=== PATIENT | female | born 1960 | race Caucasian/White ===

== ENCOUNTER 2023-01-23 12:02 | Outpatient (REF) | payer MEDICARE, SELFPAY ==
[2023-01-23 13:27] LABS: Basophils Absolute Auto 0.1 10^3/uL (0.0-0.1); Basophils Percent Auto 0.6 % (0.2-2.0); Eosinophils Percent Auto 11.5 % (0.9-7.0); Hematocrit 36.8 % (36.0-48.0); Hemoglobin 11.1 g/dL (12.0-16.0); Immature Granulocytes Abs Auto 0.03 10^3/uL (0.00-0.03); Immature Granulocytes Pct Auto 0.4 % (0.0-0.5); Lymphocytes Absolute Auto 1.5 10^3/uL (1.2-3.8); Lymphocytes Percent Auto 18.4 % (20.5-60.0); Mean Corpuscular HGB Conc 30.2 g/dL (29.9-35.2); Mean Corpuscular Hemoglobin 27.7 pg (26.7-34.0); Mean Corpuscular Volume 91.8 fL (81.0-99.0); Mean Platelet Volume 10.2 fL (9.5-13.5); Monocytes Absolute Auto 0.8 10^3/uL (0.3-0.8); Monocytes Percent Auto 9.4 % (1.7-12.0); Neutrophils Percent Auto 59.7 % (43.0-75.0); Platelet Count 370 10^3/uL (150-450); Red Blood Count 4.01 10^6/uL (4.20-5.40); Red Cell Distribution Width 17.1 % (11.0-15.0); White Blood Count 8.3 10^3/uL (4.0-11.0)
== END 2023-01-23 12:03 ==
LOC: LAB 12:02
PROVIDERS: PCP Internal Medicine; Visit Provider Internal Medicine
DX: D64.9 Anemia, unspecified (principal)
CPT/HCPCS: 36415; 85025

== ENCOUNTER 2023-02-10 05:14 | Outpatient (REF) | payer MEDICARE, SELFPAY ==
[2023-02-10 10:16] LABS: Basophils Percent Auto 0.5 % (0.2-2.0); Eosinophils Absolute Auto 0.5 10^3/uL (0.0-0.7); Hematocrit 36.1 % (36.0-48.0); Hemoglobin 11.1 g/dL (12.0-16.0); Immature Granulocytes Abs Auto 0.01 10^3/uL (0.00-0.03); Immature Granulocytes Pct Auto 0.2 % (0.0-0.5); Lymphocytes Absolute Auto 1.7 10^3/uL (1.2-3.8); Lymphocytes Percent Auto 26.4 % (20.5-60.0); Mean Corpuscular HGB Conc 30.7 g/dL (29.9-35.2); Mean Corpuscular Hemoglobin 27.7 pg (26.7-34.0); Mean Platelet Volume 10.9 fL (9.5-13.5); Monocytes Absolute Auto 0.6 10^3/uL (0.3-0.8); Monocytes Percent Auto 9.4 % (1.7-12.0); Neutrophils Absolute Auto 3.5 10^3/uL (1.4-6.5); Neutrophils Percent Auto 55.5 % (43.0-75.0); Platelet Count 248 10^3/uL (150-450); Red Blood Count 4.01 10^6/uL (4.20-5.40); Red Cell Distribution Width 16.8 % (11.0-15.0); White Blood Count 6.4 10^3/uL (4.0-11.0)
== END 2023-02-10 05:15 | disposition home or self-care (01) ==
LOC: LAB 05:14
PROVIDERS: PCP Internal Medicine; Visit Provider Internal Medicine
DX: D64.9 Anemia, unspecified (principal)
CPT/HCPCS: 36415; 85025

== ENCOUNTER 2023-05-01 01:24 | Outpatient (REF) | payer MEDICARE, SELFPAY ==
[2023-05-01 06:31] LABS: Basophils Percent Auto 0.7 % (0.2-2.0); Eosinophils Absolute Auto 0.5 10^3/uL (0.0-0.7); Eosinophils Percent Auto 8.6 % (0.9-7.0); Hematocrit 34.4 % (36.0-48.0); Hemoglobin 10.7 g/dL (12.0-16.0); Immature Granulocytes Abs Auto 0.01 10^3/uL (0.00-0.03); Immature Granulocytes Pct Auto 0.2 % (0.0-0.5); Lymphocytes Absolute Auto 1.7 10^3/uL (1.2-3.8); Lymphocytes Percent Auto 28.5 % (20.5-60.0); Mean Corpuscular HGB Conc 31.1 g/dL (29.9-35.2); Mean Corpuscular Hemoglobin 28.3 pg (26.7-34.0); Mean Platelet Volume 10.4 fL (9.5-13.5); Monocytes Absolute Auto 0.7 10^3/uL (0.3-0.8); Monocytes Percent Auto 12.1 % (1.7-12.0); Neutrophils Percent Auto 49.9 % (43.0-75.0); Platelet Count 314 10^3/uL (150-450); Red Blood Count 3.78 10^6/uL (4.20-5.40); Red Cell Distribution Width 14.9 % (11.0-15.0)
== END 2023-05-01 01:25 | disposition home or self-care (01) ==
LOC: LAB 01:24
PROVIDERS: PCP Internal Medicine; Visit Provider Internal Medicine
DX: D64.9 Anemia, unspecified (principal)
CPT/HCPCS: 36415; 85025

== ENCOUNTER 2023-06-07 04:51 | Outpatient (REF) | payer MEDICARE, MEDICAID, SELFPAY ==
[2023-06-07 10:08] LABS: Basophils Absolute Auto 0.1 10^3/uL (0.0-0.1); Basophils Percent Auto 0.6 % (0.2-2.0); Eosinophils Absolute Auto 0.4 10^3/uL (0.0-0.7); Eosinophils Percent Auto 4.5 % (0.9-7.0); Hematocrit 33.1 % (36.0-48.0); Hemoglobin 10.6 g/dL (12.0-16.0); Immature Granulocytes Abs Auto 0.02 10^3/uL (0.00-0.03); Immature Granulocytes Pct Auto 0.2 % (0.0-0.5); Lymphocytes Absolute Auto 1.7 10^3/uL (1.2-3.8); Lymphocytes Percent Auto 19.1 % (20.5-60.0); Mean Corpuscular Hemoglobin 29.3 pg (26.7-34.0); Mean Corpuscular Volume 91.4 fL (81.0-99.0); Mean Platelet Volume 10.8 fL (9.5-13.5); Monocytes Absolute Auto 0.8 10^3/uL (0.3-0.8); Monocytes Percent Auto 8.5 % (1.7-12.0); Neutrophils Absolute Auto 5.9 10^3/uL (1.4-6.5); Neutrophils Percent Auto 67.1 % (43.0-75.0); Platelet Count 279 10^3/uL (150-450); Red Blood Count 3.62 10^6/uL (4.20-5.40); Red Cell Distribution Width 13.8 % (11.0-15.0); White Blood Count 8.8 10^3/uL (4.0-11.0)
[2023-06-07 10:57] LABS: Alanine Aminotransferase 21 U/L (14-59); Albumin Globulin Ratio 0.8; Albumin Level 2.9 g/dL (3.4-5.0); Alkaline Phosphatase 93 U/L (46-116); Anion Gap 8.7; Aspartate Amino Transferase 18 U/L (15-37); BUN Creatinine Ratio 29.1; Bilirubin Total 0.2 mg/dL (0.2-1.0); Calcium 8.6 mg/dL (8.5-10.1); Carbon Dioxide 29.4 mmol/L (21.0-32.0); Chloride 104 mmol/L (98-107); Estimated GFR (African America >60 (>=60); Estimated GFR (Non-African Ame >60 (>=60); Globulin 3.7 g/dL; Glucose 82 mg/dL (74-106); Potassium 4.1 mmol/L (3.5-5.1); Sodium 138 mmol/L (136-145); Total Protein 6.6 g/dL (6.4-8.2)
== END 2023-06-07 04:52 | disposition home or self-care (01) ==
LOC: LAB 04:51
PROVIDERS: PCP Internal Medicine; Visit Provider Internal Medicine
DX: D64.9 Anemia, unspecified (principal)
CPT/HCPCS: 36415; 80053; 85025

== ENCOUNTER 2023-07-07 04:57 | Outpatient (REF) | payer MEDICARE, MEDICAID, SELFPAY ==
[2023-07-07 09:08] LABS: Thyroid Stimulating Hormone 0.307 uIU/mL (0.358-3.740)
== END 2023-07-07 04:58 | disposition home or self-care (01) ==
LOC: LAB 04:57
PROVIDERS: PCP Internal Medicine; Visit Provider Internal Medicine
DX: R62.7 Adult failure to thrive (principal); E46 Unspecified protein-calorie malnutrition
CPT/HCPCS: 36415; 80053; 84443

== ENCOUNTER 2023-07-10 00:11 | Outpatient (REF) | payer MEDICARE, MEDICAID, SELFPAY ==
[2023-07-10 08:18] LABS: Basophils Percent Auto 0.2 % (0.2-2.0); Eosinophils Absolute Auto 0.3 10^3/uL (0.0-0.7); Eosinophils Percent Auto 3.8 % (0.9-7.0); Hematocrit 48.4 % (36.0-48.0); Hemoglobin 13.7 g/dL (12.0-16.0); Immature Granulocytes Abs Auto 0.02 10^3/uL (0.00-0.03); Immature Granulocytes Pct Auto 0.2 % (0.0-0.5); Lymphocytes Absolute Auto 2.1 10^3/uL (1.2-3.8); Lymphocytes Percent Auto 23.4 % (20.5-60.0); Mean Corpuscular HGB Conc 28.3 g/dL (29.9-35.2); Mean Corpuscular Hemoglobin 28.7 pg (26.7-34.0); Mean Corpuscular Volume 101.5 fL (81.0-99.0); Mean Platelet Volume 12.9 fL (9.5-13.5); Monocytes Absolute Auto 0.6 10^3/uL (0.3-0.8); Monocytes Percent Auto 6.6 % (1.7-12.0); Neutrophils Percent Auto 65.8 % (43.0-75.0); Platelet Count 191 10^3/uL (150-450); Red Blood Count 4.77 10^6/uL (4.20-5.40); Red Cell Distribution Width 14.8 % (11.0-15.0); White Blood Count 9.1 10^3/uL (4.0-11.0)
[2023-07-10 08:55] LABS: Alanine Aminotransferase 22 U/L (14-59); Albumin Globulin Ratio 0.7; Albumin Level 3.2 g/dL (3.4-5.0); Alkaline Phosphatase 121 U/L (46-116); Anion Gap 14.6; Aspartate Amino Transferase 18 U/L (15-37); BUN Creatinine Ratio 33.8; Bilirubin Total 0.2 mg/dL (0.2-1.0); Calcium 8.8 mg/dL (8.5-10.1); Carbon Dioxide 29.4 mmol/L (21.0-32.0); Estimated GFR (African America 45 (>=60); Estimated GFR (Non-African Ame 37 (>=60); Globulin 4.3 g/dL; Glucose 113 mg/dL (74-106); Total Protein 7.5 g/dL (6.4-8.2)
[2023-07-10 09:24] LABS: Sodium 170 mmol/L (136-145)
[2023-07-10 09:25] LABS: Chloride 130 mmol/L (98-107)
[2023-07-10 17:53] LABS: Free T4 0.72 ng/dL (0.76-1.46)
[2023-07-12 12:08] LABS: Levetiracetam (Keppra), S 81.4 ug/mL (10.0-40.0)
[2023-07-12 14:10] LABS: Triiodothyronine (T3) 81 ng/dL (71-180)
== END 2023-07-10 00:12 | disposition home or self-care (01) ==
LOC: LAB 00:11
PROVIDERS: PCP Internal Medicine; Visit Provider Internal Medicine
DX: E46 Unspecified protein-calorie malnutrition (principal); R62.7 Adult failure to thrive; R79.89 Other specified abnormal findings of blood chemistry
CPT/HCPCS: 36415; 80053; 80177; 84439; 84480; 85025

== ENCOUNTER 2023-07-11 10:55 | Outpatient (REF) | payer MEDICARE, MEDICAID, SELFPAY ==
[2023-07-11 12:32] LABS: Anion Gap 16.1; BUN Creatinine Ratio 29.5; Calcium 9.3 mg/dL (8.5-10.1); Carbon Dioxide 28.1 mmol/L (21.0-32.0); Estimated GFR (African America 38 (>=60); Estimated GFR (Non-African Ame 31 (>=60); Glucose 119 mg/dL (74-106); Potassium 4.2 mmol/L (3.5-5.1)
[2023-07-11 13:03] LABS: Chloride 131 mmol/L (98-107); Sodium 171 mmol/L (136-145)
== END 2023-07-11 10:56 | disposition home or self-care (01) ==
LOC: LAB 10:55
PROVIDERS: PCP Internal Medicine; Visit Provider Internal Medicine
DX: R79.89 Other specified abnormal findings of blood chemistry (principal)
CPT/HCPCS: 36415; 80048

== ENCOUNTER 2023-07-14 11:04 | Outpatient (REF) | payer MEDICARE, MEDICAID, SELFPAY ==
[2023-07-14 11:58] LABS: Anion Gap 11.7; BUN Creatinine Ratio 16.2; Calcium 8.2 mg/dL (8.5-10.1); Carbon Dioxide 28.1 mmol/L (21.0-32.0); Chloride 118 mmol/L (98-107); Estimated GFR (African America >60 (>=60); Estimated GFR (Non-African Ame 56 (>=60); Glucose 80 mg/dL (74-106); Potassium 3.8 mmol/L (3.5-5.1); Sodium 154 mmol/L (136-145)
== END 2023-07-14 11:05 | disposition home or self-care (01) ==
LOC: LAB 11:04
PROVIDERS: PCP Internal Medicine; Visit Provider Internal Medicine
DX: E87.0 Hyperosmolality and hypernatremia (principal)
CPT/HCPCS: 36415; 80048

== ENCOUNTER 2023-07-28 02:41 | Outpatient (REF) | payer MEDICARE, MEDICAID, SELFPAY ==
[2023-07-28 08:37] LABS: Basophils Absolute Auto 0.1 10^3/uL (0.0-0.1); Basophils Percent Auto 0.7 % (0.2-2.0); Eosinophils Absolute Auto 0.4 10^3/uL (0.0-0.7); Eosinophils Percent Auto 4.3 % (0.9-7.0); Hematocrit 35.2 % (36.0-48.0); Hemoglobin 10.5 g/dL (12.0-16.0); Immature Granulocytes Abs Auto 0.03 10^3/uL (0.00-0.03); Immature Granulocytes Pct Auto 0.4 % (0.0-0.5); Lymphocytes Absolute Auto 2.6 10^3/uL (1.2-3.8); Lymphocytes Percent Auto 30.9 % (20.5-60.0); Mean Corpuscular HGB Conc 29.8 g/dL (29.9-35.2); Mean Corpuscular Volume 97.2 fL (81.0-99.0); Mean Platelet Volume 10.4 fL (9.5-13.5); Monocytes Absolute Auto 0.7 10^3/uL (0.3-0.8); Monocytes Percent Auto 8.4 % (1.7-12.0); Neutrophils Absolute Auto 4.7 10^3/uL (1.4-6.5); Neutrophils Percent Auto 55.3 % (43.0-75.0); Platelet Count 391 10^3/uL (150-450); Red Blood Count 3.62 10^6/uL (4.20-5.40); Red Cell Distribution Width 14.5 % (11.0-15.0); White Blood Count 8.5 10^3/uL (4.0-11.0)
== END 2023-07-28 02:42 | disposition home or self-care (01) ==
LOC: LAB 02:41
PROVIDERS: PCP Internal Medicine; Visit Provider Internal Medicine
DX: D64.9 Anemia, unspecified (principal)
CPT/HCPCS: 36415; 85025

== ENCOUNTER 2023-07-31 05:54 | Outpatient (REF) | payer MEDICARE, MEDICAID, SELFPAY ==
[2023-07-31 09:09] LABS: Basophils Absolute Auto 0.1 10^3/uL (0.0-0.1); Basophils Percent Auto 0.7 % (0.2-2.0); Eosinophils Absolute Auto 0.5 10^3/uL (0.0-0.7); Eosinophils Percent Auto 6.7 % (0.9-7.0); Hematocrit 42.1 % (36.0-48.0); Immature Granulocytes Abs Auto 0.02 10^3/uL (0.00-0.03); Immature Granulocytes Pct Auto 0.3 % (0.0-0.5); Lymphocytes Absolute Auto 1.8 10^3/uL (1.2-3.8); Lymphocytes Percent Auto 24.4 % (20.5-60.0); Mean Corpuscular HGB Conc 30.9 g/dL (29.9-35.2); Mean Corpuscular Hemoglobin 29.4 pg (26.7-34.0); Mean Corpuscular Volume 95.2 fL (81.0-99.0); Mean Platelet Volume 9.7 fL (9.5-13.5); Monocytes Absolute Auto 0.7 10^3/uL (0.3-0.8); Monocytes Percent Auto 9.2 % (1.7-12.0); Neutrophils Absolute Auto 4.4 10^3/uL (1.4-6.5); Neutrophils Percent Auto 58.7 % (43.0-75.0); Platelet Count 403 10^3/uL (150-450); Red Blood Count 4.42 10^6/uL (4.20-5.40); Red Cell Distribution Width 14.6 % (11.0-15.0); White Blood Count 7.5 10^3/uL (4.0-11.0)
== END 2023-07-31 05:55 | disposition home or self-care (01) ==
LOC: LAB 05:54
PROVIDERS: PCP Internal Medicine; Visit Provider Internal Medicine
DX: D64.9 Anemia, unspecified (principal)
CPT/HCPCS: 36415; 85025

== ENCOUNTER 2023-08-16 09:03 | Outpatient (REF) | payer MEDICARE, MEDICAID, SELFPAY ==
[2023-08-16 10:18] LABS: Basophils Absolute Auto 0.1 10^3/uL (0.0-0.1); Basophils Percent Auto 0.9 % (0.2-2.0); Eosinophils Absolute Auto 0.8 10^3/uL (0.0-0.7); Hematocrit 42.8 % (36.0-48.0); Hemoglobin 12.9 g/dL (12.0-16.0); Immature Granulocytes Abs Auto 0.01 10^3/uL (0.00-0.03); Immature Granulocytes Pct Auto 0.1 % (0.0-0.5); Lymphocytes Absolute Auto 2.1 10^3/uL (1.2-3.8); Lymphocytes Percent Auto 26.4 % (20.5-60.0); Mean Corpuscular HGB Conc 30.1 g/dL (29.9-35.2); Mean Corpuscular Hemoglobin 29.4 pg (26.7-34.0); Mean Corpuscular Volume 97.5 fL (81.0-99.0); Mean Platelet Volume 12.4 fL (9.5-13.5); Monocytes Absolute Auto 0.7 10^3/uL (0.3-0.8); Monocytes Percent Auto 8.8 % (1.7-12.0); Neutrophils Absolute Auto 4.3 10^3/uL (1.4-6.5); Neutrophils Percent Auto 53.8 % (43.0-75.0); Platelet Count 263 10^3/uL (150-450); Red Blood Count 4.39 10^6/uL (4.20-5.40); Red Cell Distribution Width 14.6 % (11.0-15.0)
== END 2023-08-16 09:04 | disposition home or self-care (01) ==
LOC: LAB 09:03
PROVIDERS: PCP Internal Medicine; Visit Provider Internal Medicine
DX: D64.9 Anemia, unspecified (principal)
CPT/HCPCS: 36415; 85025

== ENCOUNTER 2023-08-30 01:57 | Outpatient (REF) | payer MEDICARE, MEDICAID, SELFPAY ==
--- OUTSIDE RECORDS SUMMARY | 2023-08-30 02:01 | XMS_ITS | CCD ---
Author Name Unknown Address [address] [place] [address] Organization [facility] Care Team Providers Care Personal Banker Name Role Phone Huey Brown Unavailable SHAIKH Filiberto VORA Admitting Unavailable JANESSAY ., DR MÁRQUEZ Consulting Unavailable SHAIKH Filiberto VORA Attending Unavailable STEPHANIE, DR HOLDER Primary Care Unavailable GRECHNY ., ANDRY COLLINS Consulting Unavailko e SHAIKH Filiberto VORA Consulting Unavailable STEPHANIE, DR HOLDER Admitting Unavailable BALL, DR HOLDER Attending Unavailable BALL, DR HOLDER Consulting Unavailable BALL, DR HOLDER Admitting Unavailable BALL, DR HOLDER Attending Unavailable BALL, DR HOLDER Consulting Unavailable BALL, DR HOLDER Primary Care Unavailable BALL, DR HOLDER Consulting Unavailable BALL, DR HOLDER Admitting Unavailable BALL, DR HOLDER Attending Unavailable BALL, DR HOLDER Primary Care Unavailable BALL, DR HOLDER Consulting Unavailable BALL, DR HOLDER Admitting Unavailable BALL, DR HOLDER Attending Unavailable BALL, DR HOLDER Primary Care Unavailable BALL, DR HOLDER Admitting Unavailable BALL, DR HOLDER Attending Unavailable BALL, DR HOLDER Consulting Unavailable BALL, DR HOLDER Admitting Unavailable BALL, DR HOLDER Attending Unavailable BALL, DR HOLDER Consulting Unavailable STEPHANIE, DR HOLDER Primary Care Unavailable Medications Current Medications Medication Drug Class(es) Dates Sig (Normalized) Sig (Original) acetaminophen 650 mg rectal suppository (8 sources) Start: 09-16-2022 bisacodyl 10 mg rectal suppository (8 sources) Stimulant Laxative Start: 09-16-2022 ciprofloxacin 3 mg/ml ophthalmic solution (12 sources) Quinolone Antimicrobial take 2 drop(s) into the eye(s) four times daily Ciprofloxacin HCl 0.3 % 2 drops in both eyes Ophthalmic qid for 5 days Active take 2 drop(s) into the eye(s) four times daily Ciprofloxacin HCl 0.3 % 2 drops in both eyes Ophthalmic qid for 5 days Active 2 ml diazePAM 5 mg/ml rectal gel (17 sources) Benzodiazepine Start: 05-24-2023 take 5 mg rectal route every six hours as needed diazePAM 10 MG 5 mg Rectal every 6 hours as needed for seizure disorder for 30 days May, Active Start: 11-28-2022 take 5 mg rectal rou te every six hours as needed diazePAM 2.5 MG 5 MG Rectal every 6 hours as needed for seizure disorder Nov, Active famotidine 20 mg oral tablet (20 sources) Histamine-2 Receptor Antagonist Start: 12-29-2022 take 1 tablet by mouth once at bedtime as needed Pepcid 20 MG 1 tablet at bedtime as needed Orally q HS December, Active Start: 12-29-2022 levETIRAcetam 750 mg oral tablet (20 sources) Start: 09-16-2022 take 1 tablet by mouth every twelve hours Keppra 750 MG 1 tablet Orally every 12 hrs Aug, Active LORazepam 0.5 mg oral tablet (20 sources) Benzodiazepine Start: 02-23-2023 take 1 tablet by mouth three times daily LORazepam 0.5 MG 1 tablet Orally three times daily Jul, Active Start: 01-20-2023 take 1 tablet by suman th three times daily LORazepam 0.5 MG 1 tablet Orally three times daily Jan, Active Start: 12-21-2022 take 1 tablet by suman th three times daily LORazepam 0.5 MG 1 tablet Orally three times daily December, Active Start: 09-16-2022 take 1 tablet by suman th every twenty-four hours LORazepam 0.5 MG 1 tablet at bedtime as needed Orally Once a day Aug, Active MiraLax 17 GM/SCOOP (8 sources) Start: 09-16-2022 Start: 09-16-2022 MiraLax 17 GM/ SCOOP as directed Orally Aug, Active mirtazapine 15 mg oral tablet (8 sources) Start: 07-04-2023 take 1 tablet by mouth every twenty-four hours Mirtazapine 15 MG 1 tablet at bedtime Orally Once a day Jun, Active omeprazole 40 mg delayed release oral capsule (20 sources) Proton Pump Inhibitor Start: 12-29-2022 take 1 capsule by mouth once daily Omeprazole 40 MG 1 capsule 30 minutes before morning meal Orally Once a day December, Active sennosides, group home 8.6 mg oral tablet (8 sources) Start: 09-16-2022 take 2 tablets by mouth every twenty-four hours Problems Active Problems Problem Classification Problem Date Documented Da te Episodic/Chronic Acute posthemorrhagic anemia (18 sources) Acute posthemorrhagic anemia; Translations: [Acute posthemorrhagic anemia] Episodic Administrative/social admission (1 source) Bed confinement status; Translations: [BED CONFINEMENT STATUS] Onset: 3 Episodic Deficiency and other anemia (11 sources) Iron deficiency anemia due to blood loss; Translations: [Iron deficiency anemia secondary to blood loss (chronic)] Chronic Deficiency and other anemia (4 sources) 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 Deficiency and other anemia (4 sources) Anemia, unspecified; Translations: [ANEMIA UNSPECIFIED] Onset: 3 Episodic Developmental disorders (1 source) Unspecified intellectual disabilities; Translations: [UNSPEC INTELLECTUAL DISABILITIES] Onset: 3 Chronic Epilepsy; convulsions (20 sources) Epilepsy; Translations: [Generalized seizure disorder] Chronic Epilepsy; convulsions (1 source) Unspecified convulsions; Translations: [UNSPECIFIED CONVULSIONS] Onset: 3 Episodic Fluid and electrolyte disorders (20 sources) Dehydration; Translations: [Dehydration] Onset: 2 Episodic Gastrointestinal hemorrhage (18 sources) Gastrointestinal hemorrhage, unspecified; Translations: [Gastrointestinal hemorrhage] Onset: 3 Episodic Inflammation; infection of eye (except that caused by tuberculosis or sexually transmitteddisease) (1 source) Unspecified acute conjunctivitis, bilateral Episodic Nausea and vomiting (5 sources) Nausea with vomiting, unspecified; Translations: [NAUSEA WITH VOMITING UNSPECIFIED] Onset: 3 Episodic Nervous system congenital anomalies (20 sources) Microcephaly; Translations: [Microcephaly] Onset: 3 Chronic Other aftercare (1 source) Other fdc (current) drug therapy; Translations: [[facility] CURRENT DRUG THERAPY] Onset: 3 Episodic Other gastrointestinal disorders (20 sources) Acute constipation; Translations: [Constipation, unspecified] Episodic Other nervous system disorders (20 sources) Impaired cognition; Translations: [Other symptoms and signs involving cognitive functions and awareness] Episodic Other nervous system disorders (11 sources) Other symptoms and signs involving cognitive functions and awareness; Translations: [Cognitive impairment] Episodic Other nutritional; endocrine; and metabolic disorders (20 sources) Underweight; Translations: [Underweight] Episodic Other nutritional; endocrine; and metabolic disorders (10 sources) Underweight Episodic Paralysis (20 sources) Ataxic cerebral palsy; 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 Rock Lamb Basophils/100 WBC (Bld) 1.0 % Normal 0.2-2.0 [facility] Comment on above: Performed By: #### C BC #### [facility] [address] [place] [address] Dr. Rock Lamb EO # 0.9 103/ul Critically high 0.0-0.7 [facility] Comment on above: Performed By: #### C BC #### [facility] [address] [address] [address] Rock Lamb Eosinophils/100 WBC (Bld) 14.9 % Critically high 0.9-7.0 [facility] Comment on above: Performed By: #### C BC #### [facility] [address] [place] [address] Dr. Rock Lamb Erythrocyte distribution width (RBC) [Ratio] 17.5 % Critically high 11.0-15.0 [facility] Comment on above: Performed By: #### C BC #### [facility] [address] [place] [address] Dr. Rock Lamb Hematocrit (Bld) [Volume fraction] 33.8 % Critically low 36.0-48.0 [facility] Comment on above: Performed By: #### C BC #### [facility] [address] [place] [address] Dr. Rock Lamb Hemoglobin (Bld) [Mass/Vol] 10.4 g/dL Critically low 12.0-16.0 [facility] Comment on above: Performed By: #### C BC #### [facility] [address] [place] [address] Dr. Rock Lamb IG # 0.01 10e3/ul Normal 0.00-0.03 [facility] Comment on above: Performed By: #### C BC #### [facility] [address] [place] [address] Dr. Rock Lamb IG % 0.2 % Normal 0.0-0.5 [facility] Comment on above: Performed By: #### C BC #### [facility] [address] [place] [address] Dr. Rock Lamb LYMPH # 1.8 103/ul Normal 1.2-3.8 [facility] Comment on above: Performed By: #### C BC #### [facility] [address] [place] [address] Dr. Rock Lamb Lymphocytes/100 WBC (Bld) 29.1 % Normal 20.5-60.0 [facility] Comment on above: Performed By: #### C BC #### [facility] [address] [place] [address] Dr. Rock Lamb MANUAL DIFF REQ NO Normal [facility] Comment on above: Performed By: #### C BC #### [facility] [address] [place] [address] Dr. Rock Lamb MCH (RBC) [Entitic mass] 27.4 pg Normal 26.7-34.0 [facility] Comment on above: Performed By: #### C BC #### [facility] [address] [place] [address] Dr. Rock Lamb MCHC (RBC) [Mass/Vol] 30.8 g/dL Normal 29.9-35.2 [facility] Comment on above: Performed By: #### C BC #### [facility] [address] [address] [address] Rock Lamb MCV (RBC) [Entitic vol] 88.9 fL Normal 81.0-99.0 [facility] Comment on above: Performed By: #### C BC #### [facility] [address] [address] [address] Rock Lamb MONO # 0.5 103/ul Normal 0.3-0.8 [facility] Comment on above: Performed By: #### C BC #### [facility] [address] [address] [address] Rock Lamb Monocytes/100 WBC (Bld) 8.9 % Normal 1.7-12.0 [facility] Comment on above: Performed By: #### C BC #### [facility] [address] [address] [address] Rock Lamb NEUT # 2.8 103/ul Normal 1.4-6.5 [facility] Comment on above: Performed By: #### C BC #### [facility] [address] [address] [address] Rock Lamb Neutrophils/100 WBC (Bld) 45.9 % Normal 43.0-75.0 [facility] Comment on above: Performed By: #### C BC #### [facility] [address] [address] [address] Rock Lamb Platelet mean volume (Bld) [Entitic vol] 10.2 fL Normal 9.5-13.5 [facility] Comment on above: Performed By: #### C BC #### [facility] [address] [address] [address] Rock Lamb PLT 325 103/ul Normal 150-450 [facility] Comment on above: Performed By: #### C BC #### [facility] [address] [address] [address] Rock Lamb RBC 3.80 106/ul Critically low 4.20-5.40 [facility] Comment on above: Performed By: #### C BC #### [facility] [address] [address] [address] Rock Lmab WBC 6.1 103/ul Normal 4.0-11.0 [facility] Comment on above: Performed By: #### C BC #### [facility] [address] [address] [address] Rock Lamb CBC AUTO DIFFon 01-09-2023 BASO # 0.1 103/ul Normal 0.0-0.1 [facility] Comment on above: Performed By: #### C MP #### [facility] [address] [address] [address] Rock Lamb Basophils/100 WBC (Bld) 0.8 % Normal 0.2-2.0 [facility] Comment on above: Performed By: #### C MP #### [facility] [address] [place] [address] Dr. Rock Lamb EO # 0.8 103/ul Critically high 0.0-0.7 [facility] Comment on above: Performed By: #### C MP #### [facility] [address] [place] [address] Dr. Rock Lamb Eosinophils/100 WBC (Bld) 12.7 % Critically high 0.9-7.0 [facility] Comment on above: Performed By: #### C MP #### [facility] [address] [place] [address] Dr. Rock Lamb Erythrocyte distribution width (RBC) [Ratio] 17.4 % Critically high 11.0-15.0 [facility] Comment on above: Performed By: #### C MP #### [facility] [address] [place] [address] Dr. Rock Lamb Hematocrit (Bld) [Volume fraction] 35.1 % Critically low 36.0-48.0 [facility] Comment on above: Performed By: #### C MP #### [facility] [address] [place] [address] Dr. Rock Lamb Hemoglobin (Bld) [Mass/Vol] 10.8 g/dL Critically low 12.0-16.0 [facility] Comment on above: Performed By: #### C MP #### [facility] [address] [place] [address] Dr. Rock Lamb IG # 0.01 10e3/ul Normal 0.00-0.03 [facility] Comment on above: Performed By: #### C MP #### [facility] [address] [place] [address] Dr. Rock Lamb IG % 0.2 % Normal 0.0-0.5 [facility] Comment on above: Performed By: #### C MP #### [facility] [address] [place] [address] Dr. Rock Lamb LYMPH # 2.1 103/ul Normal 1.2-3.8 [facility] Comment on above: Performed By: #### C MP #### [facility] [address] [place] [address] Dr. Rock Lamb Lymphocytes/100 WBC (Bld) 34.7 % Normal 20.5-60.0 [facility] Comment on above: Performed By: #### C MP #### [facility] [address] [place] [address] Dr. oRck Lamb MANUAL DIFF REQ NO Normal [facility] Comment on above: Performed By: #### C MP #### [facility] [address] [place] [address] Dr. Rock Lamb MCH (RBC) [Entitic mass] 27.4 pg Normal 26.7-34.0 [facility] Comment on above: Performed By: #### C MP #### [facility] [address] [place] [address] Dr. Rock Lamb MCHC (RBC) [Mass/Vol] 30.8 g/dL Normal 29.9-35.2 [facility] Comment on above: Performed By: #### C MP #### [facility] [address] [place] [address] Dr. Rock Lamb MCV (RBC) [Entitic vol] 89.1 fL Normal 81.0-99.0 [facility] Comment on above: Performed By: #### C MP #### [facility] [address] [place] [address] Dr. Rock Lamb MONO # 0.5 103/ul Normal 0.3-0.8 [facility] Comment on above: Performed By: #### C MP #### [facility] [address] [address] [address] Rock Lamb Monocytes/100 WBC (Bld) 8.6 % Normal 1.7-12.0 [facility] Comment on above: Performed By: #### C MP #### [facility] [address] [place] [address] Dr. Rock Lamb NEUT # 2.6 103/ul Normal 1.4-6.5 [facility] Comment on above: Performed By: #### C MP #### [facility] [address] [place] [address] Dr. Rock Lamb Neutrophils/100 WBC (Bld) 43.0 % Normal 43.0-75.0 [facility] Comment on above: Performed By: #### C MP #### [facility] [address] [place] [address] Dr. Rock Lamb Platelet mean volume (Bld) [Entitic vol] 10.4 fL Normal 9.5-13.5 [facility] Comment on above: Performed By: #### C MP #### [facility] [address] [place] [address] Dr. Rock Lamb PLT 396 103/ul Normal 150-450 [facility] Comment on above: Performed By: #### C MP #### [facility] [address] [place] [address] Dr. Rock Lamb RBC 3.94 106/ul Critically low 4.20-5.[address] [facility] Comment on above: Performed By: #### C MP #### [facility] [address] [place] [address] Dr. Rock Lamb WBC 6.1 103/ul Normal 4.0-11.0 [facility] Comment on above: Performed By: #### C MP #### [facility] [address] [place], [place] [id number] Dr. Rock Lamb CBC AUTO DIFFon 01-02-2023 BASO # 0.0 103/ul Normal 0.0-0.1 [facility] Comment on above: Performed By: #### C MP #### [facility] [address] [place] [address] Dr. Rock Lamb Basophils/100 WBC (Bld) 0.4 % Normal 0.2-2.0 [facility] Comment on above: Performed By: #### C MP #### [facility] [address] [place] [address] Dr. Rock Lamb EO # 0.3 103/ul Normal 0.0-0.7 [facility] Comment on above: Performed By: #### C MP #### [facility] [address] [place] [address] Dr. Rock Lamb Eosinophils/100 WBC (Bld) 5.7 % Normal 0.9-7.0 [facility] Comment on above: Performed By: #### C MP #### [facility] [address] [place] [address] Dr. Rock Lamb Erythrocyte distribution width (RBC) [Ratio] 17.0 % Critically high 11.0-15.0 [facility] Comment on above: Performed By: #### C MP #### [facility] [address] [place] [address] Dr. Rock Lamb Hematocrit (Bld) [Volume fraction] 35.0 % Critically low 36.0-48.0 [facility] Comment on above: Performed By: #### C MP #### [facility] [address] [place] [address] Dr. Rock Lamb Hemoglobin (Bld) [Mass/Vol] 10.8 g/dL Critically low 12.0-16.0 [facility] Comment on above: Performed By: #### C MP #### [facility] [address] [place] [address] Dr. Rock Lamb IG # 0.01 10e3/ul Normal 0.00-0.03 [facility] Comment on above: Performed By: #### C MP #### [facility] [address] [place] [address] Dr. Rock Lamb IG % 0.2 % Normal 0.0-0.5 [facility] Comment on above: Performed By: #### C MP #### [facility] [address] [place] [address] Dr. Rock Lamb LYMPH # 1.8 103/ul Normal 1.2-3.8 [facility] Comment on above: Performed By: #### C MP #### [facility] [address] [place] [address] Dr. Rock Lamb Lymphocytes/100 WBC (Bld) 33.2 % Normal 20.5-60.0 [facility] Comment on above: Performed By: #### C MP #### [facility] [address] [place] [address] Dr. Rock Lamb MANUAL DIFF REQ NO Normal [facility] Comment on above: Performed By: #### C MP #### [facility] [address] [place] [address] Dr. Rock Lamb MCH (RBC) [Entitic mass] 27.3 pg Normal 26.7-34.0 [facility] Comment on above: Performed By: #### C MP #### [facility] [address] [place] [address] Dr. Rock Lamb MCHC (RBC) [Mass/Vol] 30.9 g/dL Normal 29.9-35.2 [facility] Comment on above: Performed By: #### C MP #### [facility] [address] [place] [address] Dr. Rock Lamb MCV (RBC) [Entitic vol] 88.4 fL Normal 81.0-99.0 [facility] Comment on above: Performed By: #### C MP #### [facility] [address] [place] [address] Dr. Rock Lamb MONO # 0.4 103/ul Normal 0.3-0.8 [facility] Comment on above: Performed By: #### C MP #### [facility] [address] [place] [address] Dr. Rock Lamb Monocytes/100 WBC (Bld) 7.4 % Normal 1.7-12.0 [facility] Comment on above: Performed By: #### C MP #### [facility] [address] [place] [address] Dr. Rock Lamb NEUT # 2.9 103/ul Normal 1.4-6.5 [facility] Comment on above: Performed By: #### C MP #### [facility] [address] [address] [address] Rock Lamb Neutrophils/100 WBC (Bld) 53.1 % Normal 43.0-75.0 [facility] Comment on above: Performed By: #### C MP #### [facility] [address] [place] [address] Dr. Rock Lamb Platelet mean volume (Bld) [Entitic vol] 11.0 fL Normal 9.5-13.5 [facility] Comment on above: Performed By: #### C MP #### [facility] [address] [place] [address] Dr. Rock Lamb PLT 397 103/ul Normal 150-450 [facility] Comment on above: Performed By: #### C MP #### [facility] [address] [place] [address] Dr. Rock Lamb RBC 3.96 106/ul Critically low 4.20-5.[address] [facility] Comment on above: Performed By: #### C MP #### [facility] [address] [place] [address] Dr. Rock Lamb WBC 5.4 103/ul Normal 4.0-11.0 [facility] Comment on above: Performed By: #### C MP #### [facility] [address] [place] [address] Dr. Rock Lamb FERRITINon 01-02-2023 Ferritin [Mass/Vol] 16.0 ng/mL Normal 8.0-252.0 [facility] Comment on above: Performed By: #### B 12FOL, FERR, FETIBC #### [facility] [address] [place] [address] Dr. Rock Lamb IRON AND TIBCon 01-02-2023 % SATURATION 13.7 % Normal [facility] Comment on above: Performed By: #### B 12FOL, FERR, FETIBC #### [facility] [address] [place] [address] Dr. Rock Lamb Iron [Mass/Vol] 61.0 ug/dL Normal 50.0-170.0 [facility] Comment on above: Performed By: #### B 12FOL, FERR, FETIBC #### [facility] [address] [place] [address] Dr. Rock Lamb TIBC DIRECT 446.0 ug/dL Normal 250.0-450.0 [facility] Comment on above: Performed By: #### B 12FOL, FERR, FETIBC #### [facility] [address] [place] [address] Dr. Rock Lamb VIT B12 AND FOLATEon 023 Cobalamin (Vitamin B12) [Mass/Vol] 734.0 pg/mL Normal 193.0-986.0 [facility] Comment on above: Performed By: #### B 12FOL, FERR, FETIBC #### [facility] [address] [place] [address] Dr. Rock Lamb FOLATE 29.30 ng/mL Normal 8.60-58.90 [facility] Comment on above: Performed By: #### B 12FOL, FERR, FETIBC #### [facility] [address] [place] [address] Dr. Rock Lamb CBC AUTO DIFFon 12-22-2022 BASO # 0.1 103/ul Normal 0.0-0.1 [facility] Comment on above: Performed By: #### C MP #### [facility] [address] [place] [address] Dr. Rock Lamb Basophils/100 WBC (Bld) 0.6 % Normal 0.2-2.0 [facility] Comment on above: Performed By: #### C MP #### [facility] [address] [place] [address] Dr. Rock Lamb EO # 0.5 103/ul Normal 0.0-0.7 [facility] Comment on above: Performed By: #### C MP #### [facility] [address] [address] [address] Rock Lamb Eosinophils/100 WBC (Bld) 5.8 % Normal 0.9-7.0 [facility] Comment on above: Performed By: #### C MP #### [facility] [address] [place] [address] Dr. Rock Lamb Erythrocyte distribution width (RBC) [Ratio] 16.4 % Critically high 11.0-15.0 [facility] Comment on above: Performed By: #### C MP #### [facility] [address] [place] [address] Dr. Rock Lamb Hematocrit (Bld) [Volume fraction] 33.3 % Critically low 36.0-48.0 [facility] Comment on above: Performed By: #### C MP #### [facility] [address] [place] [address] Dr. Rock Lamb Hemoglobin (Bld) [Mass/Vol] 10.5 g/dL Critically low 12.0-16.0 [facility] Comment on above: Performed By: #### C MP #### [facility] [address] [place] [address] Dr. Rock Lamb IG # 0.07 10e3/ul Critically high 0.00-0.03 [facility] Comment on above: Performed By: #### C MP #### [facility] [address] [place] [address] Dr. Rock Lamb IG % 0.8 % Critically high 0.0-0.[address] [facility] Comment on above: Performed By: #### C MP #### [facility] [address] [place] [address] Dr. Rock Lamb LYMPH # 1.9 103/ul Normal 1.2-3.8 [facility] Comment on above: Performed By: #### C MP #### [facility] [address] [place] [address] Dr. Rock Lamb Lymphocytes/100 WBC (Bld) 22.2 % Normal 20.5-60.0 [facility] Comment on above: Performed By: #### C MP #### [facility] [address] [place] [address] Dr. Rock Lamb MANUAL DIFF REQ NO Normal [facility] Comment on above: Performed By: #### C MP #### [facility] [address] [place] [address] Dr. Rock Lamb MCH (RBC) [Entitic mass] 26.8 pg Normal 26.7-34.0 [facility] Comment on above: Performed By: #### C MP #### [facility] [address] [place] [address] Dr. Rock Lamb MCHC (RBC) [Mass/Vol] 31.5 g/dL Normal 29.9-35.2 [facility] [facility] Comment [facility]: Performed By: #### C MP #### [facility] [address] [place] [address] Dr. Rock Lamb MCV (RBC) [Entitic vol] 84.9 fL Normal 81.0-99.0 [facility] Comment on above: Performed By: #### C MP #### [facility] [address] [place] [address] Dr. Rock Lamb MONO # 0.7 103/ul Normal 0.3-0.8 [facility] Comment on above: Performed By: #### C MP #### [facility] [address] [place] [address] Dr. Rock Lamb Monocytes/100 WBC (Bld) 7.6 % Normal 1.7-12.0 [facility] Comment on above: Performed By: #### C MP #### [facility] [address] [place] [address] Dr. Rock Lamb NEUT # 5.4 103/ul Normal 1.4-6.5 [facility] Comment on above: Performed By: #### C MP #### [facility] [address] [place] [address] Dr. Rock Lamb Neutrophils/100 WBC (Bld) 63.0 % Normal 43.0-75.0 [facility] Comment on above: Performed By: #### C MP #### [facility] [address] [place] [address] Dr. Rock Lamb Platelet mean volume (Bld) [Entitic vol] 9.7 fL Normal 9.5-13.5 [facility] Comment on above: Performed By: #### C MP #### [facility] [address] [place] [address] Dr. Rock Lamb PLT 292 103/ul Normal 150-450 [facility] Comment on above: Performed By: #### C MP #### [facility] [address] [place] [address] Dr. Rock Lamb RBC 3.92 106/ul Critically low 4.20-5.40 [facility] Comment on above: Performed By: #### C MP #### [facility] [address] [place] [address] Dr. Rock Lamb WBC 8.5 103/ul Normal 4.0-11.0 [facility] Comment on above: Performed By: #### C MP #### [facility] [address] [place] [address] Dr. Rock Lamb PRBC LEUKOREDUCEDon 12-23-19 23 ABO and Rh group Nom (Bld) Cross Match Result Compatible Unit Blood Type O Pos Unit Number [id number] Status Information Issued Product ID Red Blood Cells Product Code [id number] Issue Date/Time [id number] Cross Match Result Compatible Unit Blood Type O Pos Unit Number [id number] Status Information Issued Product ID Red Blood Cells Product Code [id number] Issue Date/Time [id number] Normal [facility] Comment on above: Performed By: #### C MP #### [facility] [address] [place] [address] Dr. Rock Lamb PROF 14(COMP METB)on 023 Albumin [Mass/Vol] 2.7 g/dL Critically low 3.4-5.0 [facility] Comment on above: Performed By: #### C MP #### [facility] [address] [place] [address] Dr. Rock Lamb Albumin/Globulin [Mass ratio] 0.7 {ratio} Normal [facility] Comment on above: Performed By: #### C MP #### [facility] [address] [place] [address] Dr. Rock Lamb ALP [Catalytic activity/Vol] 78 U/L Normal 46-116 [facility] Comment on above: Performed By: #### C MP #### [facility] [address] [place] [address] Dr. Rock Lamb ALT [Catalytic activity/Vol] 17 U/L Normal 14-59 [facility] Comment on above: Performed By: #### C MP #### [facility] [address] [place] [address] Dr. Rock Lamb Anion gap [Moles/Vol] 8.7 mmol/L Normal [facility] Comment on above: Performed By: #### C MP #### [facility] [address] [place] [address] Dr. Rock Lamb AST [Catalytic activity/Vol] 23 U/L Normal 15-37 [facility] Comment on above: Performed By: #### C MP #### [facility] [address] [place] [address] Dr. Rock Lamb Bilirubin [Mass/Vol] 1.2 mg/dL Critically high 0.2-1.0 [facility] Comment on above: Performed By: #### C MP #### [facility] [address] [place] [address] Dr. Rock Lamb Calcium [Mass/Vol] 8.7 mg/dL Normal 8.5-10.1 [facility] Comment on above: Performed By: #### C MP #### [facility] [address] [place] [address] Dr. Rock Lamb Chloride [Moles/Vol] 111 mmol/L Critically high 98-107 [facility] Comment on above: Performed By: #### C MP #### [facility] [address] [place] [address] Dr. Rock Lamb CO2 [Moles/Vol] 28.9 mmol/L Normal 21.0-32.0 [facility] Comment on above: Performed By: #### C MP #### [facility] [address] [address] [address] Rock Lamb Creatinine [Mass/Vol] 0.99 mg/dL Normal 0.55-1.02 [facility] Comment on above: Performed By: #### C MP #### [facility] [address] [address] [address] Rock Lamb EGFR-AF PARAGUAYAN >60 Normal >=60 [facility] Comment on above: Performed By: #### C MP #### [facility] [address] [address] [address] Rock Lamb EGFR-NON AF PARAGUAYAN 56 mL/min/1.73m2 Critically low >=60 [facility] Comment on above: Performed By: #### C MP #### [facility] [address] [address] [address] Rock Lamb Globulin (S) [Mass/Vol] 4.1 g/dL Normal [facility] Comment on above: Performed By: #### C MP #### [facility] [address] [place] [address] Dr. Rock Lamb Glucose [Mass/Vol] 93 mg/dL Normal 74-106 [facility] Comment on above: Performed By: #### C MP #### [facility] [address] [address] [address] Rock Lamb Potassium [Moles/Vol] 3.6 mmol/L Normal 3.5-5.1 [facility] Comment on above: Performed By: #### C MP #### [facility] [address] [address] [address] Rock Lamb Protein [Mass/Vol] 6.8 g/dL Normal 6.4-8.2 [facility] Comment on above: Performed By: #### C MP #### [facility] [address] [address] [address] Rock Lamb Sodium [Moles/Vol] 145 mmol/L Normal 136-145 [facility] Comment on above: Performed By: #### C MP #### [facility] [address] [address] [address] Rock Lamb Urea nitrogen [Mass/Vol] 26.0 mg/dL Critically high 7.0-18.0 [facility] Comment on above: Performed By: #### C MP #### [facility] [address] [place] [address] Dr. Rock Lamb Urea nitrogen/Creatinine [Mass ratio] 26.3 mg/mg Normal [facility] Comment on above: Performed By: #### C MP #### [facility] [address] [place] [address] Dr. Rock Lamb CBC AUTO DIFFon 12-21-2022 BASO # 0.0 103/ul Normal 0.0-0.1 [facility] Comment on above: Performed By: #### C MP #### [facility] [address] [place] [address] Dr. Rock Lamb Basophils/100 WBC (Bld) 0.4 % Normal 0.2-2.0 [facility] Comment on above: Performed By: #### C MP #### [facility] [address] [place] [address] Dr. Rock Lamb EO # 0.5 103/ul Normal 0.0-0.7 [facility] Comment on above: Performed By: #### C MP #### [facility] [address] [place] [address] Dr. Rock Lamb Eosinophils/100 WBC (Bld) 4.5 % Normal 0.9-7.0 [facility] Comment on above: Performed By: #### C MP #### [facility] [address] [place] [address] Dr. Rock Lamb Erythrocyte distribution width (RBC) [Ratio] 19.0 % Critically high 11.0-15.0 [facility] Comment on above: Performed By: #### C MP #### [facility] [address] [place] [address] Dr. Rock Lamb Hematocrit (Bld) [Volume fraction] 19.9 % Critically low 36.0-48.0 [facility] Comment on above: Performed By: #### C MP #### [facility] [address] [place] [address] Dr. Rock Lamb Hemoglobin (Bld) [Mass/Vol] 5.6 g/dL Critically low 12.0-16.0 [facility] Comment on above: Performed By: #### C MP #### [facility] [address] [place] [address] Dr. Rock Lamb IG # 0.05 10e3/ul Critically high 0.00-0.03 [facility] Comment on above: Performed By: #### C MP #### [facility] [address] [place] [address] Dr. Rock Lamb IG % 0.5 % Normal 0.0-0.5 [facility] Comment on above: Performed By: #### C MP #### [facility] [address] [place] [address] Dr. Rock Lamb LYMPH # 1.9 103/ul Normal 1.2-3.8 [facility] Comment on above: Performed By: #### C MP #### [facility] [address] [place] [address] Dr. Rock Lamb Lymphocytes/100 WBC (Bld) 17.3 % Critically low 20.5-60.0 [facility] Comment on above: Performed By: #### C MP #### [facility] [address] [place] [address] Dr. Rock Lamb MANUAL DIFF REQ NO Normal [facility] Comment on above: Performed By: #### C MP #### [facility] [address] [place] [address] Dr. Rock Lamb MCH (RBC) [Entitic mass] 23.5 pg Critically low 26.7-34.0 [facility] Comment on above: Performed By: #### C MP #### [facility] [address] [place] [address] Dr. Rock Lamb MCHC (RBC) [Mass/Vol] 28.1 g/dL Critically low 29.9-35.2 [facility] Comment on above: Performed By: #### C MP #### [facility] [address] [address] [address] Rock Lamb MCV (RBC) [Entitic vol] 83.6 fL Normal 81.0-99.0 [facility] Comment on above: Performed By: #### C MP #### [facility] [address] [address] [address] Rock Lamb MONO # 0.8 103/ul Normal 0.3-0.8 [facility] Comment on above: Performed By: #### C MP #### [facility] [address] [address] [address] Rock Lamb Monocytes/100 WBC (Bld) 7.2 % Normal 1.7-12.0 [facility] Comment on above: Performed By: #### C MP #### [facility] [address] [address] [address] Rock Lamb NEUT # 7.8 103/ul Critically high 1.4-6.5 [facility] Comment on above: Performed By: #### C MP #### [facility] [address] [address] [address] Rock Lamb Neutrophils/100 WBC (Bld) 70.1 % Normal 43.0-75.0 [facility] Comment on above: Performed By: #### C MP #### [facility] [address] [address] [address] Rock Lamb Platelet mean volume (Bld) [Entitic vol] 10.6 fL Normal 9.5-13.5 [facility] Comment on above: Performed By: #### C MP #### [facility] [address] [address] [address] Rock Lamb PLT 351 103/ul Normal 150-450 [facility] Comment on above: Performed By: #### C MP #### [facility] [address] [address] [address] Rock Lamb RBC 2.38 106/ul Critically low 4.20-5.40 [facility] Comment on above: Performed By: #### C MP #### [facility] [address] [address] [address] Rock Lamb WBC 11.1 103/ul Critically high 4.0-11.0 [facility] Comment on above: Performed By: #### C MP #### [facility] [address] [place] [address] Dr. Rock Lamb PROF 14(COMP METB)on 023 Albumin [Mass/Vol] 2.6 g/dL Critically low 3.4-5.0 [facility] Comment on above: Performed By: #### C MP #### [facility] [address] [place] [address] Dr. Rock Lamb Albumin/Globulin [Mass ratio] 0.6 {ratio} Normal [facility] Comment on above: Performed By: #### C MP #### [facility] [address] [place] [address] Dr. Rock Lamb ALP [Catalytic activity/Vol] 72 U/L Normal 46-116 [facility] Comment on above: Performed By: #### C MP #### [facility] [address] [place] [address] Dr. Rock Lamb ALT [Catalytic activity/Vol] 16 U/L Normal 14-59 [facility] Comment on above: Performed By: #### C MP #### [facility] [address] [place] [address] Dr. Rock Lamb Anion gap [Moles/Vol] 12.2 mmol/L Normal [facility] Comment on above: Performed By: #### C MP #### [facility] [address] [place] [address] Dr. Rock Lamb AST [Catalytic activity/Vol] 15 U/L Normal 15-37 [facility] Comment on above: Performed By: #### C MP #### [facility] [address] [place] [address] Dr. Rock Lamb Bilirubin [Mass/Vol] 0.1 mg/dL Critically low 0.2-1.0 [facility] Comment on above: Performed By: #### C MP #### [facility] [address] [address] [address] Rock Lamb Calcium [Mass/Vol] 8.4 mg/dL Critically low 8.5-10.1 [facility] Comment on above: Performed By: #### C MP #### [facility] [address] [address] [address] Rock Lamb Chloride [Moles/Vol] 109 mmol/L Critically high 98-107 [facility] Comment on above: Performed By: #### C MP #### [facility] [address] [address] [address] Rock Lamb CO2 [Moles/Vol] 28.0 mmol/L Normal 21.0-32.0 [facility] Comment on above: Performed By: #### C MP #### [facility] [address] [place] [address] Dr. Rock Lamb Creatinine [Mass/Vol] 0.99 mg/dL Normal 0.55-1.02 [facility] Comment on above: Performed By: #### C MP #### [facility] [address] [address] [address] Rock Lamb EGFR-AF PARAGUAYAN >60 Normal >=60 [facility] Comment on above: Performed By: #### C MP #### [facility] [address] [address] [address] Rock Lamb EGFR-NON AF PARAGUAYAN 56 mL/min/1.73m2 Critically low >=60 [facility] Comment on above: Performed By: #### C MP #### [facility] [address] [place] [address] Dr. Rock Lamb Globulin (S) [Mass/Vol] 4.0 g/dL Normal [facility] Comment on above: Performed By: #### C MP #### [facility] [address] [place] [address] Dr. Rock Lamb Glucose [Mass/Vol] 133 mg/dL Critically high 74-106 [facility] Comment on above: Performed By: #### C MP #### [facility] [address] [place] [address] Dr. Rock Lamb Potassium [Moles/Vol] 4.2 mmol/L Normal 3.5-5.1 [facility] Comment on above: Performed By: #### C MP #### [facility] [address] [address] [address] Rock Lamb Protein [Mass/Vol] 6.6 g/dL Normal 6.4-8.2 [facility] Comment on above: Performed By: #### C MP #### [facility] [address] [address] [address] Rock Lamb Sodium [Moles/Vol] 145 mmol/L Normal 136-145 [facility] Comment on above: Performed By: #### C MP #### [facility] [address] [place] [address] Dr. Rock Lamb Urea nitrogen [Mass/Vol] 38.0 mg/dL Critically high 7.0-18.0 [facility] Comment on above: Performed By: #### C MP #### [facility] [address] [address] [address] Rock Lamb Urea nitrogen/Creatinine [Mass ratio] 38.4 mg/mg Normal [facility] Comment on above: Performed By: #### C MP #### [facility] [address] [place] [address] Dr. Rock Lamb TYPE AND SCREENon 12-21-2022 TYPE AND SCREEN Negative Normal [facility] Comment on above: Performed By: #### C MP #### [facility] [address] [address] [address] Rock Lamb CBC AUTO DIFFon 12-07-2022 BASO # 0.1 103/ul Normal 0.0-0.1 [facility] Comment on above: Performed By: #### C BC #### [facility] [address] [address] [address] Rock Lamb Basophils/100 WBC (Bld) 0.7 % Normal 0.2-2.0 [facility] Comment on above: Performed By: #### C BC #### [facility] [address] [place] [address] Dr. Rock Lamb EO # 0.4 103/ul Normal 0.0-0.7 [facility] Comment on above: Performed By: #### C BC #### [facility] [address] [place] [address] Dr. Rock Lamb Eosinophils/100 WBC (Bld) 4.2 % Normal 0.9-7.0 [facility] Comment on above: Performed By: #### C BC #### [facility] [address] [place] [address] Dr. Rock Lamb Erythrocyte distribution width (RBC) [Ratio] 18.4 % Critically high 11.0-15.0 [facility] Comment on above: Performed By: #### C BC #### [facility] [address] [place] [address] Dr. Rock Lamb Hematocrit (Bld) [Volume fraction] 32.4 % Critically low 36.0-48.0 [facility] Comment on above: Performed By: #### C BC #### [facility] [address] [place] [address] Dr. Rock Lamb Hemoglobin (Bld) [Mass/Vol] 9.0 g/dL Critically low 12.0-16.0 [facility] Comment on above: Performed By: #### C BC #### [facility] [address] [place] [address] Dr. Rock Lmab IG # 0.02 10e3/ul Normal 0.00-0.03 [facility] Comment on above: Performed By: #### C BC #### [facility] [address] [place] [address] Dr. Rock Lamb IG % 0.2 % Normal 0.0-0.5 [facility] Comment on above: Performed By: #### C BC #### [facility] [address] [place] [address] Dr. Rock Lamb LYMPH # 2.4 103/ul Normal 1.2-3.8 [facility] Comment on above: Performed By: #### C BC #### [facility] [address] [place] [address] Dr. Rock Lamb Lymphocytes/100 WBC (Bld) 28.5 % Normal 20.5-60.0 [facility] Comment on above: Performed By: #### C BC #### [facility] [address] [place] [address] Dr. Rock Lamb MANUAL DIFF REQ NO Normal [facility] Comment on above: Performed By: #### C BC #### [facility] [address] [place] [address] Dr. Rock Lamb MCH (RBC) [Entitic mass] 23.7 pg Critically low 26.7-34.0 [facility] Comment on above: Performed By: #### C BC #### [facility] [address] [place] [address] Dr. Rock Lamb MCHC (RBC) [Mass/Vol] 27.8 g/dL Critically low 29.9-35.2 [facility] Comment on above: Performed By: #### C BC #### [facility] [address] [place] [address] Dr. Rock Lamb MCV (RBC) [Entitic vol] 85.5 fL Normal 81.0-99.0 [facility] Comment on above: Performed By: #### C BC #### [facility] [address] [place] [address] Dr. Rock Lamb MONO # 0.5 103/ul Normal 0.3-0.8 [facility] Comment on above: Performed By: #### C BC #### [facility] [address] [place] [address] Dr. Rock Lamb Monocytes/100 WBC (Bld) 6.4 % Normal 1.7-12.0 [facility] Comment on above: Performed By: #### C BC #### [facility] [address] [place] [address] Dr. Rock Lamb NEUT # 4.9 103/ul Normal 1.4-6.5 [facility] Comment on above: Performed By: #### C BC #### [facility] [address] [place] [address] Dr. Rock Lamb Neutrophils/100 WBC (Bld) 60.0 % Normal 43.0-75.0 [facility] Comment on above: Performed By: #### C BC #### [facility] [address] [place] [address] Dr. Rock Lamb Platelet mean volume (Bld) [Entitic vol] 10.3 fL Normal 9.5-13.5 [facility] Comment on above: Performed By: #### C BC #### [facility] [address] [place] [address] Dr. Rock Lamb PLT 506 103/ul Critically high 150-450 [facility] Comment on above: Performed By: #### C BC #### [facility] [address] [place] [address] Dr. Rock Lamb RBC 3.79 106/ul Critically low 4.20-5.40 [facility] Comment on above: Performed By: #### C BC #### [facility] [address] [place] [address] Dr. Rock Lamb WBC 8.3 103/ul Normal 4.0-11.0 [facility] Comment on above: Performed By: #### C BC #### [facility] [address] [place] [address] Dr. Rock Lamb PROF 14(COMP METB)on 023 Albumin [Mass/Vol] 3.5 g/dL Normal 3.4-5.0 [facility] Comment on above: Performed By: #### C MP #### [facility] [address] [place] [address] Dr. Rock Lamb Albumin/Globulin [Mass ratio] 0.7 {ratio} Normal [facility] Comment on above: Performed By: #### C MP #### [facility] [address] [place] [address] Dr. Rock Lamb ALP [Catalytic activity/Vol] 90 U/L Normal 46-116 [facility] Comment on above: Performed By: #### C MP #### [facility] [address] [place] [address] Dr. Rock Lamb ALT [Catalytic activity/Vol] 24 U/L Normal 14-59 [facility] Comment on above: Performed By: #### C MP #### [facility] [address] [address] [address] Rock Lamb Anion gap [Moles/Vol] 14.9 mmol/L Normal [facility] Comment on above: Performed By: #### C MP #### [facility] [address] [address] [address] Rock Lamb AST [Catalytic activity/Vol] 17 U/L Normal 15-37 [facility] Comment on above: Performed By: #### C MP #### [facility] [address] [address] [address] Rock Lamb Bilirubin [Mass/Vol] 0.3 mg/dL Normal 0.2-1.0 [facility] Comment on above: Performed By: #### C MP #### [facility] [address] [address] [address] Rock Lamb Calcium [Mass/Vol] 9.9 mg/dL Normal 8.5-10.1 [facility] Comment on above: Performed By: #### C MP #### [facility] [address] [address] [address] Rock Lamb Chloride [Moles/Vol] 120 mmol/L Critically high 98-107 [facility] Comment on above: Performed By: #### C MP #### [facility] [address] [address] [address] Rock Lamb CO2 [Moles/Vol] 29.2 mmol/L Normal 21.0-32.0 [facility] Comment on above: Performed By: #### C MP #### [facility] [address] [address] [address] Rock Lamb Creatinine [Mass/Vol] 1.18 mg/dL Critically high 0.55-1.02 [facility] Comment on above: Performed By: #### C MP #### [facility] [address] [address] [address] Rock Lamb EGFR-AF PARAGUAYAN 56 mL/min/1.73m2 Critically low >=60 [facility] Comment on above: Performed By: #### C MP #### [facility] [address] [address] [address] Rock Lamb EGFR-NON AF PARAGUAYAN 46 mL/min/1.73m2 Critically low >=60 [facility] Comment on above: Performed By: #### C MP #### [facility] [address] [address] [address] Rock Lamb Globulin (S) [Mass/Vol] 5.0 g/dL Normal [facility] Comment on above: Performed By: #### C MP #### [facility] [address] [address] [address] Rock Lamb Glucose [Mass/Vol] 75 mg/dL Normal 74-106 [facility] Comment on above: Performed By: #### C MP #### [facility] [address] [address] [address] Rock Lamb Potassium [Moles/Vol] 4.1 mmol/L Normal 3.5-5.1 [facility] Comment on above: Performed By: #### C MP #### [facility] [address] [address] [address] Rock Lamb Protein [Mass/Vol] 8.5 g/dL Critically high 6.4-8.2 [facility] Comment on above: Performed By: #### C MP #### [facility] [address] [address] [address] Rock Lamb Sodium [Moles/Vol] 160 mmol/L Critically high 136-145 [facility] Comment on above: Performed By: #### C MP #### [facility] [address] [address] [address] Rock Lamb Urea nitrogen [Mass/Vol] 40.0 mg/dL Critically high 7.0-18.0 [facility] Comment on above: Performed By: #### C MP #### [facility] [address] [address] [address] Rock Lamb Urea nitrogen/Creatinine [Mass ratio] 33.9 mg/mg [facility] Comment on above: Performed By: #### C MP #### [facility] [address] [address] [address] Rock Lamb THYR STIM IMMUNOGLOBULINon 1 10-10-2021 Thyroid Sim Immunoglobulin QNSTST Normal [facility] Comment on above: Result Comment: Test not performed. Insufficient specimen to perform or complete analysis. contacted Elza at your facility on 08-09-2022 Performed By: #### T HSI #### [facility] [address] [address] [address] Rock Lamb T3, TOTAL (TRIIODOTHYRONINE) on 08-03-2022 T3, TOTAL 81 ng/dL Normal 71-180 [facility] Comment on above: Performed By: #### C MP #### [facility] [address] [place] [address] Dr. Rock Lamb FREE T4on 08-01-2022 Free T4 [Mass/Vol] 1.14 ng/dL Normal 0.76-1.46 [facility] Comment on above: Performed By: #### C MP #### [facility] [address] [address] [address] Rock Lamb T4on 08-01-2022 T4 [Mass/Vol] 8.40 ug/dL Normal 4.80-13.90 [facility] Comment on above: Performed By: #### T SH, T4 #### [facility] [address] [address] [address] Rock Lamb TSHon 08-01-2022 TSH 0.154 uIU/mL Critically low 0.358-3.740 [facility] Comment on above: Performed By: #### C MP #### [facility] [address] [address] [address] Rock Lamb Encounters Encounter Date Encounter Type Care Provider Facility Start: 08-10-2023 End: 08-10-2023 ambulatory Huey Brown Other [facility] Other Start: 08-10-2023 Sbsq nursing facil care/day minor complj 15 min Huey Brown [facility] Start: 08-01-2023 End: 08-01-2023 ambulatory Huey Ball Other [facility] Other Start: 08-01-2023 Telephone encounter Huey Brown [facility] Start: 07-24-2023 End: 07-24-2023 ambulatory Huey Ball Other [facility] Other Start: 07-24-2023 Telephone encounter Huey Ball [facility] Start: 07-20-2023 End: 07-20-2023 ambulatory Huey Ball Other [facility] Other Start: 07-20-2023 Sbsq nursing facil care/day new problem 25 min Huey Ball [facility] Start: 07-12-2023 End: 07-12-2023 ambulatory Huey Ball Other [facility] Other Start: 07-12-2023 Telephone encounter Huey Ball [facility] Start: 07-11-2023 End: 07-11-2023 ambulatory Huey Ball Other [facility] Other Start: 07-11-2023 Telephone encounter Huey Ball [facility] Start: 07-10-2023 End: 07-10-2023 ambulatory Huey Ball Other [facility] Other Start: 07-10-2023 Telephone encounter Huey Ball [facility] Start: 07-04-2023 End: 07-04-2023 ambulatory Huey Ball Other [facility] Other Start: 07-04-2023 Telephone encounter Huey Ball [facility] Start: 06-15-2023 End: 06-15-2023 ambulatory Huey Ball Other [facility] Other Start: 06-15-2023 Sbsq nursing facil care/day minor complj 15 min [facility] Start: 05-24-2023 End: 05-24-2023 ambulatory Huey Ball Other [facility] Other Start: 05-24-2023 Telephone encounter Huey Ball [facility] Start: 05-18-2023 End: 05-18-2023 ambulatory Huey Ball Other [facility] Other Start: 05-18-2023 Sbsq nursing facil care/day minor complj 15 min Huey Ball [facility] Start: 05-09-2023 End: 05-09-2023 ambulatory Huey Ball Other [facility] Other Start: 05-09-2023 Telephone encounter Huey Ball [facility] Start: 04-13-2023 End: 04-13-2023 ambulatory Huey Ball Other [facility] Other Start: 04-13-2023 Sbsq nursing facil care/day minor complj 15 min Huey Ball [facility] Start: 03-16-2023 End: 03-16-2023 ambulatory Huey Ball Other [facility] Other Start: 03-16-2023 Sbsq nursing facil care/day minor complj 15 min Huey Ball [facility] Start: 02-23-2023 End: 02-23-2023 ambulatory Huey Ball Other [facility] Other Start: 02-23-2023 Telephone encounter Huey Ball [facility] Start: 02-09-2023 End: 02-09-2023 ambulatory Huey Ball Other [facility] Other Start: 02-09-2023 Sbsq nursing facil care/day minor complj 15 min Huey Ball [facility] Start: 01-20-2023 End: 01-20-2023 ambulatory Huey Ball Other [facility] Other Start: 01-20-2023 Telephone encounter [facility] Start: 01-16-2023 End: 01-16-[address] HUEY BROWN Facility:[facility] Start: 01-09-2023 End: 01-09-[address] HUEY BROWN Facility:[facility] Start: 01-02-2023 End: 01-02-[address] HUEY BROWN Facility:[facility] Start: 12-29-2022 End: 12-29-2022 ambulatory Huey Brown Other [facility] Other Start: 12-29-2022 Initial nursing facility care/day 25 minutes [facility] Start: 12-29-2022 Telephone encounter Huey Brown [facility] Start: 12-21-2022 End: 12-22-2022 ambulatory SHAIKH Filiberto [facility] Other Start: 12-21-2022 Telephone encounter Huey Maher [facility] Start: 12-09-2022 End: 12-09-2022 ambulatory Huey Brown Other [facility] Other Start: 12-09-2022 Sbsq nursing facil care/day new problem 25 min Huey Brown [facility] Start: 12-07-2022 End: 12-07-[address] HUEY BROWN Facility:[facility] Start: 11-29-2022 End: 11-29-2022 ambulatory Huey Brown Other [facility] Other Start: 11-29-2022 Telephone encounter Huey Maher [facility] Start: 11-28-2022 End: 11-28-2022 ambulatory Huey Brown Other [facility] Other Start: 11-28-2022 Telephone encounter Huey Maher [facility] Start: 11-10-2022 End: 11-10-2022 ambulatory Huey Brown Other [facility] Other Start: 11-10-2022 Sbsq nursing facil care/day minor complj 15 min [facility] Start: 08-01-2022 End: 08-01-[address] HUEY BROWN Facility:[facility] Payers Date Payer Category Payer Medicaid [id number]. [id number] 1961 Medicare [id number] 2.1 [id number] 1960 Unknown [id number] 2.16.84 [id number] 1960 Unknown [id number] 2.16.84 [id number] 1960 Unknown [id number] 2.16.84 [id number] 1960 Unknown [id number] 2.16.84 [id number] 1958 Unknown [id number] 2.16.84 [id number] 1960 Unknown [id number] 2.16.84 [id number] 1960 Unknown [id number] 2.16.84 [id number] Social History Date Type Detail Facility Sex Assigned At [facility] Other Clinical Notes 11-10-2022 to 08-10-2023 Note Date & Type Note Facility 08-10-2023 Evaluation note Encounter Date Diagnosis Assessment Notes Jul, Iron deficiency anemia due to chronic blood loss (ICD-10 - D50.0) Hx of severe GIB No intervention due to poor quality of life Treated empirically for upper GIB w/ PPI No further s/s bleeding H/H stable Jul, Epilepsy, unspecified, not intractable, without status epilepticus (ICD-10 - G40.909) Seizures controlled COntinue present treatment w/o adjustments Jul, 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 Avoid salt Monitor closely for DI Jul, Dehydration (ICD-10 - E86.0) IV hydration completed w/ resumption of normal oral intake Jul, Impaired cognitive ability (ICD-10 - R41.89) Requires 24 hour care Nonverbal Jul, Underweight (ICD-10 - R63.6) Encourage supplements but difficult [facility] Other 12-04-2023 Evaluation note* Encounter Date Diagnosis Assessment Notes Treatment Notes Treatment Clinical Notes Jul, Epilepsy, unspecified, not intractable, without status epilepticus (ICD-10 - G40.909) [facility] Other 11-30-2023 Evaluation note* Encounter Date Diagnosis Assessment Notes Treatment Notes Treatment Clinical Notes Jun, Hypernatremia (ICD-10 - E87.0) D545 1000 ml at 150ml/hr x 24 hours. Improvement in serum sodium w/ improvement in oral intake of food and fluids. Jun, Dehydration (ICD-10 - E86.0) Much improved w/ IV hydration w/ resumption of normal intake of nutrition and fluids Jun, Iron deficiency anemia due to chronic blood loss (ICD-10 - D50.0) Monitor for bleeding. 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 Comfortable and kept clean Jun, Epilepsy, unspecified, not intractable, without status epilepticus (ICD-10 - G40.909) Intermittent episoes of breakthrough sz, which have been recalcitrant to treatment changes/ adjustments in the past. No change in medical therapy Jun, Underweight (ICD-10 - R63.6) Requires assistance w/ eating and drinking. 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 No obvious uncontrolled seizure May, Iron deficiency anemia due to chronic blood loss (ICD-10 - D50.0) Continue Fe supplement Monitor H/H monthly May, Underweight (ICD-10 - R63.6) Protein supplements [facility] Other 09-28-2023 Evaluation note* Encounter Date Diagnosis Assessment Notes Treatment Notes Treatment Clinical Notes Apr, Epilepsy, unspecified, not intractable, without status epilepticus (ICD-10 - G40.909) Optimal conrol w/ persistent small breakthrough episodes. Rectal administration fo meds for seizure affective. 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 Crawls in room. Apr, Impaired cognitive ability (ICD-10 - R41.89) Lifelong disability. 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 She crawls around in her room w/ her furnature at floor level Mar, Epilepsy, unspecified, not intractable, without status epilepticus (ICD-10 - G40.909) No active sz recently. continue Keppra w/ Ativan//Valium as needed for breakthrough episodes Mar, Impaired cognitive ability (ICD-10 - R41.89) REquires 24 hours care, which is provided by the [place] Mar, Upper GI bleed (ICD-10 - K92.2) No s/s bleeding Continue PPI lifelong Avoid NSAIDs Mar, Acute blood loss anemia (ICD-10 - D62) Monitor w/ transfusion for Hgb < 7.5gm Family aware and decline further evaluation / procedures Mar, Underweight (ICD-10 - R63.6) Encourage adequate intake of protein/calories Boost/Ensure Requires assistance w/ meals [facility] Other 07-27-2023 Evaluation note* Encounter Date Diagnosis Assessment Notes Treatment Notes Treatment Clinical Notes Feb, Epilepsy, unspecified, not intractable, without status epilepticus (ICD-10 - G40.909) Continues to require 24 hour care Physical and mental disability Feb, 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 WC for MRADL Feb, Impaired cognitive ability (ICD-10 - R41.89) Requiring 24 hour assistance w/ all ADL Feb, Upper GI bleed (ICD-10 - K92.2) No s/s active bleeding. 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 MRADL via wheelchair that requires assistance to propel Jan, Epilepsy, unspecified, not intractable, without status epilepticus (ICD-10 - G40.909) Continue present treatment No Sz activity since previous visit Jan, Acute blood loss anemia (ICD-10 - D62) Fe replacement w/ PPI therapy has resulted in gradual improvement in H/H. Continue close monitoring of H/H and continued PPI therapy. Fe supplements until H/H normal Jan, Impaired cognitive ability (ICD-10 - R41.89) Requires 24 hour care for all ADL Jan, Underweight (ICD-10 - R63.6) Assisting w/ meals [facility] Other 06-02-2023 Evaluation note* Encounter Date Diagnosis Assessment Notes Treatment Notes Treatment Clinical Notes Jan, Epilepsy, unspecified, not intractable, without status epilepticus (ICD-10 - G40.909) [facility] Other 05-11-2023 Evaluation note* Encounter Date Diagnosis Assessment Notes Treatment Notes Treatment Clinical Notes December, Upper gastrointestin al bleeding (ICD-10 - K92.2) Monitor for s/s bleeding. Diet as tolerated Avoid NSAIDs COntinue PPI and Pepcid December, Acute blood loss anemia (ICD-10 - D62) Serial H/H Check Fe, FA, B12 levels Transfuse if < 7gm December, Ataxic cerebral pals y (ICD-10 - G80.4) Requires 24 hour care December, Epilepsy, unspecifie d, not intractable, without status epilepticus (ICD-10 - G40.909) Continue medication w/ Valium or Ativan for frequent breakthrough sz December, Impaired cognitive ability (ICD-10 - R41.89) Care in [place] December, Underweight (ICD-10 - R63.6) ENcourage to eat meals and offer snacks [facility] Other 05-03-2023 Evaluation note* Encounter Date Diagnosis Assessment Notes Treatment Notes Treatment Clinical Notes December, Epilepsy, unspecified, not intractable, without status epilepticus (ICD-10 - G40.909) [facility] Other 04-21-2023 Evaluation note* Encounter Date Diagnosis Assessment Notes Treatment Notes Treatment Clinical Notes Nov, 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 Nov, Epilepsy, unspecified, not intractable, without status epilepticus (ICD-10 - G40.909) Prolonged episode since last visit. Prescribed rectal Valium to use as needed. Nov, Impaired cognitive ability (ICD-10 - R41.89) Requires 24 hour care. Nov, Underweight (ICD-10 - R63.6) Difficult to entice eating. 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) Nonambulatory, requires 24 hour assistance Oct, Epilepsy, unspecified, not intractable, without status epilepticus (ICD-10 - G40.909) Controlled w/o breakthrough reported Oct, Impaired cognitive ability (ICD-10 - R41.89) Congenital, requires care in [place] Oct, Underweight (ICD-10 - R63.6) Continue protein/calorie supplements [facility] Other Evaluation noteNo InformationNoMobile Travel [employer] Other Evaluation noteNoMobile [employer] Other History general Narrative - Reported* Type Description Date Medical History Cognitive impairment Medical History Underweight Medical History Ataxic cerebral palsy Medical History Generalized seizure disorder Medical History Microcephaly Medical History Acute constipation Medical History Dehydration Medical History COVID [facility] Other History general Narrative - ReportedNoMobile [employer] Other Summary Purpose Family History No Family History Records Found Advance Directives No Advanced Directives Records Found Additional Source Comments REASON FOR VISIT (unrecogniz ed section and content) BCCNo InformationMedication ChangeBCCrefillBCCUpdateNo InformationBCCNo InformationrefillBCCBCCPink EyeBCCrefillBCCNo InformationLab resultsLab ResultsInstructionsBCCrefillNew ordersBCC INFORMATION SOURCE (unrecogn ized section and content) DATE CREATED AUTHOR 01/27/2023 [facility] FOR RECORDS PERTAINING TO PATIENTS WHO ARE OR HAVE BEEN ENROLLED IN A CHEMICAL DEPENDENCY/SUBSTANCEABUSE PROGRAM, SOME INFORMATION MAY BE OMITTED. This clinical summary was aggregated from multiple sources. Caution should be exercised in using it in the provision of clinical care. This summary normalizes information from multiple sources, and as a consequence, information in this document may materially change the coding, format and clinical context of patient data. In addition, data may be omitted in some cases. CLINICAL DECISIONS SHOULD BE BASED ON THE PRIMARY CLINICAL RECORDS. [facility] [employer] [facility]. provides no warranty or guarantee of the accuracy or completeness of information in this document.
[2023-08-30 08:44] LABS: Basophils Percent Auto 0.5 % (0.2-2.0); Eosinophils Absolute Auto 0.1 10^3/uL (0.0-0.7); Eosinophils Percent Auto 0.6 % (0.9-7.0); Hematocrit 48.5 % (36.0-48.0); Immature Granulocytes Abs Auto 0.01 10^3/uL (0.00-0.03); Immature Granulocytes Pct Auto 0.1 % (0.0-0.5); Lymphocytes Absolute Auto 1.5 10^3/uL (1.2-3.8); Mean Corpuscular HGB Conc 28.9 g/dL (29.9-35.2); Mean Corpuscular Hemoglobin 29.4 pg (26.7-34.0); Mean Corpuscular Volume 101.7 fL (81.0-99.0); Mean Platelet Volume 13.7 fL (9.5-13.5); Monocytes Absolute Auto 0.9 10^3/uL (0.3-0.8); Monocytes Percent Auto 10.7 % (1.7-12.0); Neutrophils Absolute Auto 5.6 10^3/uL (1.4-6.5); Neutrophils Percent Auto 69.1 % (43.0-75.0); Platelet Count 210 10^3/uL (150-450); Red Blood Count 4.77 10^6/uL (4.20-5.40); Red Cell Distribution Width 15.2 % (11.0-15.0); White Blood Count 8.1 10^3/uL (4.0-11.0)
[2023-08-30 08:53] LABS: Potassium 3.3 mmol/L (3.5-5.1)
[2023-08-30 10:09] LABS: Sodium 166 mmol/L (136-145)
[2023-08-30 10:10] LABS: Anion Gap 12.6; BUN Creatinine Ratio 40.6; Calcium 9.5 mg/dL (8.5-10.1); Carbon Dioxide 26.7 mmol/L (21.0-32.0); Chloride 130 mmol/L (98-107); Estimated GFR (African America 23 (>=60); Estimated GFR (Non-African Ame 19 (>=60); Glucose 187 mg/dL (74-106)
== END 2023-08-30 01:58 | disposition home or self-care (01) ==
LOC: LAB 01:57
PROVIDERS: PCP Internal Medicine; Visit Provider Internal Medicine
DX: D64.9 Anemia, unspecified (principal)
CPT/HCPCS: 36415; 80048; 85025